=== PATIENT | female | born 2000 | race Caucasian/White ===

== ENCOUNTER 2021-12-01 22:56 | Emergency (ER) | payer OTHER ==
[2021-12-01 23:47] LABS: BASOPHIL 0.5 % (0-2); EOSINOPHIL 1.2 % (0-5); HCT 39.4 % (37.0-47.0); HGB 13.6 g/dl (12.5-16.0); LYMPHOCYTE 22.7 % (15-48); MCH 32.3 pg (25.0-31.0); MCHC 34.5 g/dL (32.0-36.0); MCV 93.6 fL (78.0-100.0); MONOCYTE 7.3 % (0-12); MPV 9.5 fL (6.0-9.5); NRBC 0; PLT 276 K/uL (150-400); RBC 4.21 M/uL (4.20-5.40); RDW 11.9 % (11.5-14.0); WBC 14.2 K/uL (4.0-10.5)
[2021-12-01 23:48] LABS: BILIRUBIN NEGATIVE (NEGATIVE); BLOOD 3+ Ery/uL (NEGATIVE); COLOR YELLOW (YELLOW); GLUCOSE (U) NORMAL (NORMAL); LEUKOCYTES NEGATIVE Leu/uL (NEGATIVE); NITRITE NEGATIVE (NEGATIVE); PROTEIN NEGATIVE (NEGATIVE); UROBILINOGEN 0.2 mg/dL (0.2-1.0); pH 6.5 (5.0-9.0)
[2021-12-01 23:53] LABS: CLARITY SLIGHTLY HAZY (CLEAR)
[2021-12-01 23:54] LABS: BACTERIA 1+; SQUAMOUS EPITHELIAL CELLS 20-50
[2021-12-02 00:05] LABS: ALBUMIN 4.4 g/dL (3.4-5.0); BILIRUBIN - TOTAL 0.3 mg/dL (0.2-1.0); BUN/CREAT RATIO (CALC) 13.6 RATIO; CREATININE 0.66 mg/dL (0.51-0.95); GLOBULIN (CALCULATION) 3.8 g/dL; POTASSIUM 3.6 mmol/L (3.5-5.1); TOTAL PROTEIN 8.2 g/dL (6.4-8.2)
[2021-12-02] MEDS ORDERED: AMOXICILLIN875 MG PO (01:01)
== END 2021-12-02 00:45 | disposition home or self-care (01) ==
LOC: FER 22:56
PROVIDERS: Emergency Medicine
DX: O20.0 Threatened abortion (principal); O99.891 Other specified diseases and conditions complicating pregnancy; R82.71 Bacteriuria; Z3A.01 Less than 8 weeks gestation of pregnancy
CPT/HCPCS: 36415; 76801; 80053; 81001; 84702; 85025; 86900; 86901

== ENCOUNTER 2021-12-03 20:20 | Emergency (ER) | payer OTHER ==
[~2021-12-03 20:20] MED LIST: AMOXICILLIN875 MG PO
== END 2021-12-03 21:58 | disposition home or self-care (01) ==
LOC: FER 20:20
DX: O20.0 Threatened abortion (principal); Z3A.01 Less than 8 weeks gestation of pregnancy
CPT/HCPCS: 36415; 84702; 99284